=== PATIENT | male | born 1970 | race Caucasian/White ===

== ENCOUNTER 2018-06-27 06:37 | Day surgery (SDC) | payer OTHER ==
[~2018-06-27 06:37] MED LIST: IBUPROFEN 600 MG TABLET PO ONE; TDAP [DIPH/PERTUSSIS/TET] 0.5 ML VIAL IM ONE
[2018-06-27] MEDS ORDERED: methylPREDNISolone ACETATE 80 MG/ML VIAL IJ ONE (06:38)
[2018-06-27] MEDS ORDERED: FENTANYL PF 250MCG/5ML AMPUL ONE (08:25)
[2018-06-27] MEDS ORDERED: MIDAZOLAM HCL 2 MG/2ML VIAL ONE (08:25)
[2018-06-27] MEDS ORDERED: FENTANYL PF 100MCG/2ML AMPUL ONE (08:26)
[2018-06-27] MEDS ORDERED: ROCURONIUM BROMIDE 50 MG/5 ML ONE (08:27)
[2018-06-27] MEDS ORDERED: METOCLOPRAMIDE HCL 10 MG/2 ML VIAL ONE (08:28)
[2018-06-27] MEDS ORDERED: BUPIVACAINE 0.25% 75 MG/30 ML VIAL ONE (08:29)
[2018-06-27] MEDS ORDERED: LIDOCAINE HCL/PF 1% 30 ML SDV ONE (08:51)
[2018-06-27] MEDS ORDERED: EPINEPHRINE (1:1000) MDV 30 MG/30ML VIAL ONE (08:52)
== END 2018-06-27 11:30 | disposition home or self-care (01) ==
LOC: DS 06:37
PROVIDERS: ATTEND Specialist
DX: M24.112 Other articular cartilage disorders, left shoulder (principal); M19.012 Primary osteoarthritis, left shoulder; M75.42 Impingement syndrome of left shoulder; M65.812 Other synovitis and tenosynovitis, left shoulder; Z98.890 Other specified postprocedural states; Z79.899 Other long term (current) drug therapy
CPT/HCPCS: 29821; 29822; 29824; 29826; 82962; 88304; 88311; 90715 ×2; A4217; A6402; J0171; J1040; J2250; J2405; J2704; J2710; J2765; J3010 ×2; J3490 ×3; J7120; Z7610

== ENCOUNTER 2019-01-28 05:13 | Inpatient (IN) | payer OTHER ==
[~2019-01-28] VITALS: Ht 190.5 cm; Wt 127.0 kg
[2019-01-28 05:30] VITALS: BP 117/70
[2019-01-28 08:00] VITALS: BP 116/65
[2019-01-28] MEDS ORDERED: ANESTHESIA TRAY IN PYXIS 1 EA TRAY MC ONE (08:43)
[2019-01-28] MEDS ORDERED: BUPIVACAINE 0.25% 75 MG/30 ML VIAL ONE (08:43)
[2019-01-28] MEDS ORDERED: ASPI-1169 PO (08:45)
[2019-01-28] MEDS ORDERED: LEVO150T8 PO (08:45)
[2019-01-28] MEDS ORDERED: GEMF600T5 PO (08:45)
[2019-01-28] MEDS ORDERED: EMPA25TA PO (08:45)
[2019-01-28] MEDS ORDERED: METF-442 PO (08:45)
[2019-01-28] MEDS ORDERED: IBUP-1957 PO (08:45)
[2019-01-28] MEDS ORDERED: LISI-607 PO (08:45)
[2019-01-28] MEDS ORDERED: INSU300I SQ (08:45)
[2019-01-28] MEDS ORDERED: LIOT50TA4 PO (08:45)
[2019-01-28] MEDS ORDERED: PRED2.5T PO (08:47)
[2019-01-28] MEDS ORDERED: DULA1.5P SQ (08:47)
[2019-01-28] MEDS ORDERED: CHOL200026 PO (08:47)
[2019-01-28] MEDS ORDERED: SEVOFLURANE 250 ML BOTTLE IH ONE (08:57)
[2019-01-28] MEDS ORDERED: GEMFIBROZIL 600 MG TABLET PO SCH (09:00)
[2019-01-28] MEDS ORDERED: INSULIN REGULAR, HUMAN 100 UNIT/ML 3 ML VIAL SQ PRN (09:00)
[2019-01-28] MEDS ORDERED: IBUPROFEN 800 MG TABLET PO PRN (09:00)
[2019-01-28] MEDS ORDERED: DEXTROSE 50%-WATER 50 ML DISP.SYRIN IV PRN (09:00)
[2019-01-28 09:43] VITALS: BP 116/65
[2019-01-28] MEDS ORDERED: FENTANYL PF 100MCG/2ML AMPUL ONE (09:56)
[2019-01-28] MEDS ORDERED: ASPIRIN 81 MG TAB.CHEW PO SCH (10:00)
[2019-01-28] MEDS ORDERED: LEVOTHYROXINE SODIUM 150 MCG TABLET PO SCH (10:30)
[2019-01-28] MEDS ORDERED: CHOLECALCIFEROL 1,000 UNIT TABLET (VIT D3) PO SCH (10:30)
[2019-01-28] MEDS ORDERED: LISINOPRIL (5MG) 5 MG TABLET PO SCH (10:30)
[2019-01-28] MEDS ORDERED: predniSONE 5 MG TABLET PO SCH (10:30)
[2019-01-28] MEDS ORDERED: IBUPROFEN 400 MG TABLET PO PRN (11:30)
[2019-01-28] MEDS ORDERED: BLOOD SUGAR DIAGNOSTIC 1 EACH STRIP IN SCH (12:00)
[2019-01-28] MEDS ORDERED: INSULIN GLARGINE, 100 UNIT/ML CARTRIDGE SQ SCH (17:00)
[2019-01-29] MEDS ORDERED: LEVOTHYROXINE SODIUM 75 MCG TABLET PO SCH (07:30)
[2019-01-29] MEDS ORDERED: LIOTHYRONINE SODIUM (25 MCG) 25 MCG TABLET PO SCH (09:00)
== END 2019-01-28 12:30 | disposition home or self-care (01) | DRG 42 ==
LOC: DS 05:13 → MED 05:20
PROVIDERS: ADMIT Specialist; ATTEND Specialist
PROC: 01N50ZZ Release Median Nerve, Open Approach (ICD-10-PCS; principal; 2019-01-28)
DX: G56.01 Carpal tunnel syndrome, right upper limb (principal); E03.9 Hypothyroidism, unspecified; E11.9 Type 2 diabetes mellitus without complications; E66.9 Obesity, unspecified; I10 Essential (primary) hypertension; Z68.35 Body mass index [BMI] 35.0-35.9, adult; Z83.3 Family history of diabetes mellitus; Z96.651 Presence of right artificial knee joint; Z98.890 Other specified postprocedural states
CPT/HCPCS: 82962-TC; 87081-TC; A6402; G0378; J0690; J1100; J1815; J2001; J2765; J3010; J3490